=== PATIENT | male | born 1995 | race Two or more races ===

== ENCOUNTER 2021-01-20 00:56 | Emergency (ER) | payer OTHER ==
[~2021-01-20] VITALS: Ht 162.6 cm; Wt 93.0 kg
[2021-01-20 00:57] VITALS: BP 154/93
--- NOTE | 2021-01-20 01:14 | NUR ---
COVID SWAB COLLECTED AND SENT TO THE LAB.
[2021-01-20] MEDS ORDERED: ALBU8.5H8 INH (02:00)
== END 2021-01-20 02:00 | disposition home or self-care (01) ==
LOC: ER 01:02
DX: R07.89 Other chest pain (principal); R06.02 Shortness of breath; R51.9 Headache, unspecified; R05 Cough; J45.909 Unspecified asthma, uncomplicated; Z91.013 Allergy to seafood; Z86.16 Personal history of COVID-19
CPT/HCPCS: 71045; 87426; 99284; C9803

== ENCOUNTER 2021-01-29 23:48 | Emergency (ER) | payer OTHER ==
[~2021-01-29] VITALS: Ht 160 cm; Wt 90.7 kg
[~2021-01-29 23:48] MED LIST: ALBU8.5H8 INH
--- NOTE | 2021-01-30 00:30 | NUR ---
right ac 18 intitated
--- NOTE | 2021-01-30 00:30 | NUR ---
pt bibself c/o headache [id number]. Pt aaox 4 breathing evenly and unlabored. Pt skin warm, dry, and intact. pt attached to monitor and pox.pt states he has "tried otc for pain, but no relief" Pt given blanket and call light within reach. Will continue to monitor.
[2021-01-30] MEDS ORDERED: SUMATRIPTAN SUCCINATE 6 MG/0.5 ML VIAL SQ ONE ×2 (00:54→01:00)
[2021-01-30] MEDS ORDERED: METOCLOPRAMIDE HCL 10 MG/2 ML VIAL ONE (00:54)
[2021-01-30] MEDS ORDERED: IV NS 0.9% 1,000 ML BAG IV ONE (01:00)
[2021-01-30] MEDS ORDERED: METOCLOPRAMIDE HCL 10 MG/2 ML VIAL IV ONE (01:00)
[2021-01-30] MEDS ORDERED: IBUP-1957 PO (01:15)
[2021-01-30 02:14] VITALS: BP 130/70
--- NOTE | 2021-01-30 02:14 | NUR ---
Patient discharged to home in stable condition. Written and verbal after care instructions given. Patient verbalizes understanding of instruction.IV removed. Catheter intact and site benign. Pressure and 4x4 applied to site. No bleeding noted.Pt ambulatory with a steady gait
== END 2021-01-30 02:14 | disposition home or self-care (01) ==
LOC: ER 23:48
DX: R51.9 Headache, unspecified (principal); R42 Dizziness and giddiness; J45.909 Unspecified asthma, uncomplicated; Z91.013 Allergy to seafood; Z79.899 Other long term (current) drug therapy
CPT/HCPCS: 96372; 70450; 96361; 96374; 99285; J2765; J3030